=== PATIENT | female | born 1975 | race Caucasian/White ===

== ENCOUNTER 2023-07-13 08:51 | Outpatient (RCR) | payer BC ==
[~2023-07-13 08:51] MED LIST: HYDROCHLOROTH12.5 M2 PO; LEXAPRO20 M1 PO; OMEPRAZOLE40 MG PO; VITAMIN D3125 MC3 PO; WELLBUTRIN XL150 M2 PO; ZESTRIL10 M1 PO
== END 2023-08-05 | disposition home or self-care (01) ==
LOC: PT
DX: M25.562 Pain in left knee (principal)

== ENCOUNTER 2023-08-07 08:00 | Outpatient (RCR) | payer BC | END 2023-09-05 | disposition home or self-care (01) | LOC: PT | DX: M25.562 Pain in left knee (principal); Z98.890 Other specified postprocedural states ==

== ENCOUNTER 2023-09-06 08:00 | Outpatient (RCR) | payer BC | END 2023-10-04 | disposition home or self-care (01) | LOC: PT | DX: M25.562 Pain in left knee (principal); Z98.890 Other specified postprocedural states ==